=== PATIENT | female | born 1955 | race Caucasian/White ===

== ENCOUNTER 2020-06-20 10:59 | Outpatient (REF) | payer OTHER, SELFPAY ==
--- NOTE | 2020-06-20 11:04 | MM_ITS ---
EXAMINATION: MM SCREENING DIGITAL BREAST TOMOSYNTHESIS, BILATERAL CLINICAL INFORMATION: Screening. Asymptomatic. Personal history of breast cancer, status post left conservation therapy in September 2013. The lifetime risk of breast cancer based on the Tyrer-Cuzick Model: Not applicable given the personal history of breast cancer. COMPARISON: Mammography: 01/20/2019 and multiple previous mammograms dated back to 08/28/2013 TECHNIQUE: Digital breast tomosynthesis is performed in both the craniocaudal and mediolateral oblique views along with computer-aided detection (CAD). Synthesized 2D images are generated from the tomosynthesis. FINDINGS: The breasts are almost entirely fatty (ACR BI-RADS breast composition Category a). Right breast: No suspicious masses, calcifications, architectural distortion or other abnormalities are seen. Compared to the last study, no significant interval change is noted. Left breast: Postsurgical changes of lumpectomy at 12 o'clock in the anterior third with focal architectural distortion, overlying surgical skin scar and skin retraction are again noted without significant interval change compared to previous studies. Grouped coarse and heterogeneous calcifications are noted in the surgical bed, 6 cm from nipple; at least 3 of the calcifications have been stable since the previous mammograms of 12/11/2017. 2-3 calcifications appear new compared to last study of 2019. This probably represent developing calcifications of likely necrosis however further evaluation is recommended at this time. No suspicious masses or other abnormalities are seen. MM/MM tomosynthesis screening BI IMPRESSION: 1. No mammographic evidence of malignancy in the right breast. 2. Slight interval increase in the number of calcifications in the surgical bed in the left breast at 12 o'clock. ASSESSMENT: BI-RADS 0: Incomplete - Need Additional Imaging Evaluation RECOMMENDATION: Left full-field mediolateral view, left spot magnification craniocaudal view and left spot magnification mediolateral views are recommended. Radiology department staff will contact the patient for additional imaging.
== END 2020-06-20 11:00 | disposition home or self-care (01) ==
LOC: HO.MAMMO 10:59
PROVIDERS: PCP Internal Medicine; Visit Provider Internal Medicine
DX: Z12.31 Encounter for screening mammogram for malignant neoplasm of breast (principal)
CPT/HCPCS: 77063; 77067

== ENCOUNTER 2020-06-28 12:32 | Outpatient (REF) | payer OTHER, SELFPAY ==
--- NOTE | 2020-06-28 12:38 | MM_ITS ---
EXAMINATION: MM DIAGNOSTIC DIGITAL MAMMOGRAPHY, LEFT CLINICAL INFORMATION: Recall from screening for calcifications in region of lumpectomy. COMPARISON: Mammography: 06/20/2020, 01/20/2019, 12/11/2017 TECHNIQUE: Digital mammography is performed in the following views: Magnification CC, magnification ML FINDINGS: There are scattered areas of fibroglandular density (ACR BI-RADS breast composition Category b). The additional magnification views show tightly grouped coarse benign-appearing calcifications in the region of the lumpectomy. One of the calcifications have lucent center and they are circumferentially arranged on the CC view. Results are discussed with the patient at time of visit. MM/MM added views LT IMPRESSION: Benign-appearing calcifications in the lumpectomy bed, likely dystrophic and/or fat necrosis. ASSESSMENT: BI-RADS 3: Probably Benign RECOMMENDATION: Diagnostic left mammography in 6 months. This patient's information was entered into a reminder system with a target due date for their next mammogram.
== END 2020-06-28 12:33 | disposition home or self-care (01) ==
LOC: HO.MAMMO 12:32
PROVIDERS: PCP Internal Medicine; Visit Provider Internal Medicine
DX: R92.1 Mammographic calcification found on diagnostic imaging of breast (principal)
CPT/HCPCS: 77065

== ENCOUNTER 2020-10-06 06:39 | Outpatient (REF) | payer OTHER, SELFPAY ==
[2020-10-06 11:03] LABS: MANUAL DIFF FLAG NO
[2020-10-06 11:07] LABS: Basophils Absolute Auto 0.1 X10*3/uL (0.0-0.2); Basophils Percent Auto 0.9 % (0-2); Eosinophils Absolute Auto 0.3 X10*3/uL (0.0-0.4); Eosinophils Percent Auto 4.8 % (0-4); Hematocrit 46.9 % (37-47); Hemoglobin 15.5 g/dl (12.0-16.0); Imm Gran Abs Auto 0.02 X10*3/uL (0.00-0.03); Imm Gran Pct Auto 0.3 % (0.0-0.4); Lymphocytes Absolute Auto 1.4 X10*3/uL (1.2-4.9); Lymphocytes Percent Auto 20.9 % (20-40); Mean Corpuscular Hemoglobin 30.9 pg (27.0-33.0); Mean Corpuscular Volume 93.6 fL (80-98); Mean Platelet Volume 10.4 fL (9.4-12.3); Monocytes Absolute Auto 0.6 X10*3/uL (0.1-1.2); Monocytes Percent Auto 9.6 % (2-11); Neutrophils Absolute Auto 4.1 X10*3/uL (2.0-8.3); Neutrophils Percent Auto 63.5 % (45-73); Platelet Count 230 X10*3/uL (160-400); Red Blood Count 5.01 X10*6/uL (4.20-5.50); Red Cell Distribution Width 12.8 % (11.0-16.0); White Blood Count 6.5 X10*3/uL (4.8-10.8)
[2020-10-06 11:48] LABS: Alanine Aminotransferase 16 U/L (0-31); Albumin Level 4.3 g/dL (3.5-5.0); Alkaline Phosphatase 55 U/L (39-117); Anion Gap 15 (12-20); Aspartate Amino Transferase 14 U/L (5-31); Bilirubin Total 0.7 mg/dL (0.0-1.0); Blood Urea Nitrogen 15 mg/dL (9-16); Calcium 8.5 mg/dL (8.4-10.2); Carbon Dioxide 25 mmol/L (22-29); Chloride 106 mmol/L (96-108); Cholesterol 201 mg/dL; Estimated Glomerular Filt Rate > 60; Glucose Fasting 94 mg/dL (60-99); HDL Cholesterol 47 mg/dL; LDL Cholesterol Calculated 126 mg/dl; Potassium 4.2 mmol/L (3.3-5.1); Sodium 142 mmol/L (135-145); Total Protein 7.1 g/dL (6.5-8.0); Triglycerides 144 mg/dL
[2020-10-06 11:50] LABS: TSH reflex Free T4 2.21 uIU/mL (0.32-4.0); Vitamin D 25-OH Total 23.1 ng/mL (>30)
== END 2020-10-06 06:40 | disposition home or self-care (01) ==
LOC: HO.HMGCLDS 06:39
PROVIDERS: PCP Internal Medicine; Visit Provider Internal Medicine
DX: D05.12 Intraductal carcinoma in situ of left breast (principal); E66.01 Morbid (severe) obesity due to excess calories; M17.0 Bilateral primary osteoarthritis of knee; Z78.0 Asymptomatic menopausal state
CPT/HCPCS: 36415; 80053; 80061; 82306; 84443; 85025

== ENCOUNTER 2020-10-14 15:54 | Outpatient (REF) | payer OTHER, SELFPAY ==
[2020-10-22 06:12] LABS: HPV mRNA E6/E7 rflx Not Detected (Not Detected)
== END 2020-10-14 15:55 | disposition home or self-care (01) ==
LOC: HO.LNP 15:54
PROVIDERS: Visit Provider Internal Medicine
DX: Z12.4 Encounter for screening for malignant neoplasm of cervix (principal); Z11.51 Encounter for screening for human papillomavirus (HPV)
CPT/HCPCS: 87624; 88142

== ENCOUNTER 2020-10-15 11:20 | Outpatient (REF) | payer OTHER, SELFPAY | END 2020-10-15 11:21 | disposition home or self-care (01) | LOC: HO.LNP 11:20 | PROVIDERS: Visit Provider Internal Medicine | DX: Z13.89 Encounter for screening for other disorder (principal) ==

== ENCOUNTER 2021-01-23 13:26 | Outpatient (REF) | payer MEDICARE, SELFPAY ==
--- NOTE | ~2021-01-23 | MM_ITS ---
EXAMINATION: MM DIAGNOSTIC DIGITAL BREAST TOMOSYNTHESIS, LEFT CLINICAL INFORMATION: Probable benign calcifications in area of lumpectomy scar left breast. 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 COMPARISON: Mammography: 06/28/2020, 06/20/2020 (BI-RADS 0), 01/20/2019, 12/11/2017 TECHNIQUE: Digital breast tomosynthesis is performed in both the craniocaudal and mediolateral oblique views along with computer-aided detection (CAD). Synthesized 2D images are generated from the tomosynthesis. Additional magnification left CC and magnification left ML views are obtained. FINDINGS: There are scattered areas of fibroglandular density (ACR BI-RADS breast composition Category b). There are post therapy changes with minor scarring anterior medial left breast. There is no developing density or interval mass or abnormal calcifications. The calcifications for follow-up are benign and coarser since prior diagnostic exam. They will be reassessed again at time of annual mammography, due in 6 months. Results are discussed with the patient at time of visit. MM/MM tomosynthesis diagnostic LT IMPRESSION: Postsurgical changes consistent with prior lumpectomy. Calcifications at lumpectomy site are coarser and appear benign. ASSESSMENT: BI-RADS 3: Probably Benign RECOMMENDATION: Diagnostic mammography at time of annual exam, due in 6 months. This patient's information was entered into a reminder system with a target due date for their next mammogram.
== END 2021-01-23 13:27 | disposition home or self-care (01) ==
LOC: HO.MAMMO 13:26
PROVIDERS: Visit Provider Internal Medicine
DX: R92.1 Mammographic calcification found on diagnostic imaging of breast (principal)
CPT/HCPCS: 77061; 77065

== ENCOUNTER 2021-03-21 08:14 | Outpatient (REF) | payer MEDICARE, SELFPAY ==
--- NOTE | ~2021-03-21 | MM_ITS ---
EXAMINATION: BONE DENSITOMETRY CLINICAL INDICATION: Asymptomatic menopausal state. COMPARISON: Baseline BD dated 11/19/2013. TECHNIQUE: Using a [employer] [place] DXA System (software version: 13.1) manufactured by [employer], dual-energy x-ray absorptiometry was performed of the lumbar spine and left hip. The images are of good technical quality. Summary results are attached. FINDINGS: AP SPINE L1-L4: Current: BMD 1.119 g/cm2, Z-score -0.1, T-score -0.5, normal, 4.3% decrease from baseline (<5% change is not significant). Baseline: BMD 1.169 g/cm2. LEFT FEMUR, NECK: Current: BMD 0.937 g/cm2, Z-score 0.0, T-score -0.7, normal. Baseline: BMD 0.944 g/cm2. LEFT FEMUR, TOTAL: Current: BMD 1.023 g/cm2, Z-score 0.5, T-score 0.1, normal, 4.8% decrease from baseline (<5% change is not significant). Baseline: BMD 1.075 g/cm2. IDENTIFIED RISK FACTORS: Menopause. HISTORY OF FRACTURE: None listed. MEDICATIONS: Vitamin D. MM/XR DEXA axial skeleton IMPRESSION: 1. DIAGNOSIS: Normal bone density based on the lowest T-score value of -0.7 in the femoral neck applying World Health Organization criteria. 2. 10-YEAR FRACTURE RISK PREDICTION, FRAX: Major osteoporotic fracture (clinical spine, forearm, hip or shoulder) 5.9%. Hip fracture 0.3%. 3. Treatment Recommendations: NOF guidelines recommend consideration for treatment in postmenopausal women and men age 50 and older presenting with the following: -A hip or vertebral (clinical or morphometric) fracture. -T-score less than or equal to -2.5 at the femoral neck or spine after appropriate evaluation to exclude secondary causes. -Low bone mass at the hip or spine and a 10-year fracture probability by FRAX of greater than or equal to 3% for hip fracture or greater than or equal to 20% for major osteoporotic fracture based on the [place] adapted WHO algorithm. 4. Other Recommendations: All treatment decisions require clinical judgment and consideration of individual patient factors, including patient preferences, comorbidities, previous drug use, risk factors not captured in the FRAX model (e.g. frailty, falls, vitamin D deficiency, increased bone turnover, interval significant decline in bone density) and possible under or overestimation of fracture risk by FRAX. FUTURE SCAN RECOMMENDATION: People with diagnosed cases of osteoporosis or at high risk for fracture should have regular bone mineral density tests. For patients eligible for Medicare, routine testing is allowed once every 2 years. The testing frequency can be increased to one year for patients who have rapidly progressing disease, those who are receiving or discontinuing medical therapy to restore bone mass, or have additional risk factors.
== END 2021-03-21 08:15 | disposition home or self-care (01) ==
LOC: HO.MAMMO 08:14
PROVIDERS: Visit Provider Internal Medicine
DX: Z13.820 Encounter for screening for osteoporosis (principal); Z78.0 Asymptomatic menopausal state; Z79.899 Other long term (current) drug therapy
CPT/HCPCS: 77080

== ENCOUNTER 2021-09-01 09:02 | Outpatient (REF) | payer MEDICARE, SELFPAY ==
--- NOTE | ~2021-09-01 | MM_ITS ---
EXAMINATION: MM DIAGNOSTIC DIGITAL BREAST TOMOSYNTHESIS, BILATERAL CLINICAL INFORMATION: Six-month follow-up bilateral study with follow-up calcifications on the left. Status post left lumpectomy. COMPARISON: Mammography: 01/23/2021 and studies dating back to 08/28/2013. TECHNIQUE: Digital breast tomosynthesis is performed in both the craniocaudal and mediolateral oblique views along with computer-aided detection (CAD). Synthesized 2D images are generated from the tomosynthesis. Spot magnification views in craniocaudal and 90 degree mediolateral views also performed. FINDINGS: There are scattered areas of fibroglandular density (ACR BI-RADS breast composition Category b). There is a stable parenchymal pattern of the right breast with no new suspicious grouping of microcalcifications or abnormal dominant masses. Postsurgical change is again seen within the left breast. The questioned calcifications about the upper outer aspect of the left breast are seen to be coalescing with the appearance of dystrophic calcifications from surgery. Anterior to these calcifications there are some of the developing calcifications which likely are dystrophic as well. Recommend 1 year follow-up study with magnification views at time of the bilateral mammogram. Results are provided to the patient at time of visit by the technologist. MM/MM tomosynthesis diagnostic BI IMPRESSION: Probably developing dystrophic calcifications within the left breast. ASSESSMENT: BI-RADS 3: Probably Benign. RECOMMENDATION: Diagnostic mammography at time of next annual exam, due in 12 months. This patient's information was entered into a reminder system with a target due date for their next mammogram.
== END 2021-09-01 09:03 | disposition home or self-care (01) ==
LOC: HO.MAMMO 09:02
PROVIDERS: Visit Provider Internal Medicine
DX: R92.1 Mammographic calcification found on diagnostic imaging of breast (principal)
CPT/HCPCS: 77062; 77066

== ENCOUNTER 2021-10-23 07:38 | Outpatient (REF) | payer MEDICARE, SELFPAY ==
[2021-10-23 11:56] LABS: Alanine Aminotransferase 14 U/L (0-31); Anion Gap 11 (12-20); Aspartate Amino Transferase 13 U/L (5-31); Blood Urea Nitrogen 24 mg/dL (9-16); Calcium 9.3 mg/dL (8.4-10.2); Carbon Dioxide 27 mmol/L (22-29); Chloride 107 mmol/L (96-108); Cholesterol 175 mg/dL; Estimated Glomerular Filt Rate 59; Glucose Fasting 99 mg/dL (60-99); HDL Cholesterol 42 mg/dL; LDL Cholesterol Calculated 113 mg/dl; Potassium 4.9 mmol/L (3.3-5.1); Sodium 140 mmol/L (135-145); Triglycerides 103 mg/dL
[2021-10-23 12:16] LABS: Vitamin D 25-OH Total 35.1 ng/mL (>30)
== END 2021-10-23 07:39 | disposition home or self-care (01) ==
LOC: HO.HMGCLDS 07:38
PROVIDERS: Visit Provider Internal Medicine
DX: Z00.01 Encounter for general adult medical examination with abnormal findings (principal); E55.9 Vitamin D deficiency, unspecified; E66.01 Morbid (severe) obesity due to excess calories; M17.0 Bilateral primary osteoarthritis of knee; D05.12 Intraductal carcinoma in situ of left breast; Z78.0 Asymptomatic menopausal state
CPT/HCPCS: 36415; 80048; 80061; 82306; 84450; 84460

== ENCOUNTER 2022-09-03 08:45 | Outpatient (REF) | payer MEDICARE, SELFPAY ==
--- NOTE | ~2022-09-03 | MM_ITS ---
EXAMINATION: MM DIAGNOSTIC DIGITAL BREAST TOMOSYNTHESIS, BILATERAL CLINICAL INFORMATION: Due for yearly. Also follow-up probable benign calcifications in area of lumpectomy scar left breast, prior surgery 2014 for high-grade DCIS (primary lesion a nodule). COMPARISON: Mammography: 09/01/2021, 01/23/2021, 06/28/2020, 06/20/2020 (BI-RADS 0), 01/20/2019 TECHNIQUE: Digital breast tomosynthesis is performed in both the craniocaudal and mediolateral oblique views along with computer-aided detection (CAD). Synthesized 2D images are generated from the tomosynthesis. Additional magnification views of the left breast are obtained in the CC and ML x3 projections. FINDINGS: There are scattered areas of fibroglandular density (ACR BI-RADS breast composition Category b). Parenchymal pattern is similar to prior exams and there is no developing density or interval mass or architectural abnormality or abnormal calcifications. The axilla are unremarkable. Post therapy changes on the left are similar to prior exams. There are benign coarse dystrophic calcifications at the lumpectomy site with no interval suspicious changes from prior diagnostic studies. The calcifications are now considered to be benign. Results are discussed with the patient at time of visit. MM/MM tomosynthesis diagnostic BI IMPRESSION: -No mammographic evidence of malignancy. -Post therapy changes left breast. Benign calcifications at lumpectomy scar. ASSESSMENT: BI-RADS 2: Benign RECOMMENDATION: Routine annual mammography screening. This patient's information was entered into a reminder system with a target due date for their next mammogram.
== END 2022-09-03 08:46 | disposition home or self-care (01) ==
LOC: HO.MAMMO 08:45
PROVIDERS: PCP Internal Medicine; Visit Provider Internal Medicine
DX: R92.1 Mammographic calcification found on diagnostic imaging of breast (principal)
CPT/HCPCS: 77062; 77066

== ENCOUNTER 2023-10-07 10:28 | Outpatient (REF) | payer MEDICARE, SELFPAY ==
--- NOTE | ~2023-10-07 | MM_ITS ---
EXAMINATION: MM SCREENING DIGITAL BREAST TOMOSYNTHESIS, BILATERAL CLINICAL INFORMATION: Screening. Asymptomatic. The patient has a history of conservatively treated left breast cancer diagnosed in 2014 COMPARISON: Mammography: This study is compared with prior exams dating back to 2018. TECHNIQUE: Digital breast tomosynthesis is performed in both the craniocaudal and mediolateral oblique views along with computer-aided detection (CAD). Synthesized 2D images are generated from the tomosynthesis. FINDINGS: There are scattered areas of fibroglandular density (ACR BI-RADS breast composition Category b). There are no significant masses, abnormal calcifications, or other abnormalities. There are architectural changes retroareolar region of the left breast from prior cancer surgery. Few, benign dystrophic calcifications are present in this region. MM/MM tomosynthesis screening BI IMPRESSION: No mammographic evidence of malignancy. ASSESSMENT: BI-RADS BI-RADS 2 - Benign Findings RECOMMENDATION: Routine annual mammography screening. 1 year F/U This examination should not preclude the clinical evaluation of a suspicious palpable abnormality. This patient's information was entered into a reminder system with a target due date for their next mammogram.
== END 2023-10-07 10:29 | disposition home or self-care (01) ==
LOC: HO.MAMMO 10:28
PROVIDERS: PCP Internal Medicine; Visit Provider Internal Medicine
DX: Z12.31 Encounter for screening mammogram for malignant neoplasm of breast (principal)
CPT/HCPCS: 77063; 77067

== ENCOUNTER → 2023-10-07 10:30 | Outpatient (BNV) | payer MEDICARE, SELFPAY | PROVIDERS: PCP Internal Medicine; Visit Provider Radiology Diagnostic Radiology | DX: Z12.31 Encounter for screening mammogram for malignant neoplasm of breast (principal) | CPT/HCPCS: 77063; 77067 ==

== ENCOUNTER 2023-12-17 08:01 | Outpatient (AMB) | payer MEDICARE, SELFPAY ==
--- NOTE | 2023-12-17 08:05 | A.OFFPC_ITS ---
Vital Signs 12/17/23 08:07 Height 5 ft 4 in Weight 294 lb BMI 50.5 BP 136/80 Blood Pressure Location Rt radial Position Sitting Pulse 80 Pulse Source Pulse Oximeter Pulse Oximetry (%) 97 Oxygen Delivery Method Room Air Intake Visit Reasons: Lt eye cataract Dr. Davis on 12/18 Intake Note: Pt is here today for her pre-op Lt eye cataract Dr. Davis Allergies No Known Allergies Allergy (Verified 12/17/23 08:20) Medication List - Last Reconciled 12/17/23 by Vidhi Urrutia MD acetaminophen ER (Tylenol 8 Hour) 650 mg PO Q12H naproxen 500 mg PO BID Tobacco use date assessed: 12/17/23 Fall risk assessment: 1 Fall in past year Last assessed Fall Risk: 12/17/23 Dental Screening Dental Screen Date: 12/17/23 Did you have a dental visit in the last 12 months?: Yes Did you have a dental problem in the last 6 months where you did not have access to dental care?: No Was dental information given to patient?: Patient has dentist HPI Lt eye cataract Dr. Davis on 12/18 HPI Details 68 year old Lady here today for preopera tive exam for cataract surgery on her left eye, scheduled for 12/19/2023, requested by Dr. Davis. She has history of ductal carcinoma in Situ of left breast , status post partial mastectomy in 2013; has history osteoarthritis s/p bilateral knee replacement; has been feeling well with no new complaints at present time except for pain and stiffness in her right hip joint. 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, bilateral Surgical History History of partial mastectomy History of knee replacement Family History Mother Breast cancer Father Coronary artery disease Hypertension Sister Muscular dystrophy Breast cancer Ovarian cancer Thyroid cancer Social History Housing: House Alcohol intake: current Alcohol intake frequency: holidays/special occasions only Patient Tobacco Use Status: Never used Tobacco e-Cigarette/Vaping Use: Never Used service: No Current occupational status: retired Cognitive needs: No Hearing needs: No Vision needs: No Questionnaire PHQ-9 Over the last 2 weeks, how often have you been bothered by any of the following problems? 1. Little interest or pleasure in doing things: not at all 2. Feeling down, depressed, or hopeless: not at all 3. Trouble falling or staying asleep, or sleeping too much: not at all 4. Feeling tired or having little energy: not at all 5. Poor appetite or overeating: not at all 6. Feeling bad about yourself - or that you are a failure or have let yourself or your family down: not at all 7. Trouble concentrating on things, such as reading the newspaper or watching television: not at all 8. Moving or speaking so slowly that other people could have noticed. Or the opposite - being so fidgety or restless that you have been moving around a lot more than usual: not at all 9. Thoughts that you would be better off or of hurting yourself in some way: not at all Total score: 0 Depression Screening Interpretation: Negative Depression Screening Done: Yes 30873 - PHQ-9 Billing: Yes Source: Developed by Drs. Mazin Choudhury, Marina Ríos, Tanner Grimm and colleagues, with an educational tracie from [employer]. Thrive Questionnaire Date Thrive assessed: 12/17/23 I am a: Patient What is your living situation today?: I have a steady place to live Within the past 12 months, did the food you bought not last and you didn't have the money to get more?: Never true Within the past 12 months, did you worry whether your food would run out before you got money to buy more?: Never true Do you have trouble paying for medicines?: No Do you have trouble getting transportation to medical appointments?: No Do you have trouble paying your heating and electricity bill?: No Do you have trouble taking care of your child, family member or friend?: No Do you have trouble with day-to-day activities such as bathing, preparing meals, shopping, managing finances, etc.?: No Are you currently unemployed and looking for a job?: No Are you interested in more education?: No THRIVE Score: 0 AUDIT C Alcohol Use Questionnaire (AUDIT-C) 1. How often do you have a drink containing alcohol?: Never Total Score: 0 HENRIQUE-7 AMB Questionnaire HENRIQUE-7 Date HENRIQUE - 7 assessed: 12/17/23 Feeling nervous, anxious, or on edge: 0 = Not at all Not being able to stop or control worryin = Not at all Worrying too much about different things: 0 = Not at all Trouble relaxin = Not at all Being so restless that it is hard to sit still: 0 = Not at all Becoming easily annoyed or irritable: 0 = Not at all Feeling afraid as if something awful might happen: 0 = Not at all Total HENRIQUE-7 score (0-4 normal; 5-9 mild; 10-14 moderate; 15-21 severe): 0 Source: Developed by Drs. Mazin Choudhury, Marina Ríos, Tanner Grimm and colleagues, with an educational tracie from [employer]. HENRIQUE-7 Assessment Billing HENRIQUE-7 Assessment Tool: HENRIQUE-7 Assessment 95845 Review of Systems Const Denies body aches, Denies fatigue, Denies fever(s), Denies frequent falls, Denies headache(s) and Denies weakness Eyes Reports blurry vision, Denies eye discharge and Denies itchy eyes ENT Denies dizziness, Denies headache(s), Denies nasal congestion, Denies nasal discharge and Denies sore throat Card Denies chest pain, Denies lightheadedness, Denies palpitations and Denies dyspnea Resp Denies chest congestion, Denies cough, Denies dyspnea and Denies wheezing GI Denies abdominal pain, Denies change in bowel habits and Denies heartburn Denies urinary frequency, Denies dysuria and Denies urinary urgency Musc Denies back pain, Denies joint swelling, Denies muscle weakness and Reports stiffness Skin/Breast Denies lesions and Denies rash Neuro Denies dizziness, Denies frequent falls, Denies headache(s) and Denies weakness Psych Denies anxiety and Denies depression Endo Denies fatigue, Denies polydipsia, Denies polyuria and Denies palpitations Rocael/Lymph Denies easy bruising Aller/Immun Denies itchy eyes, Denies seasonal rhinorrhea and Denies wheezing Physical exam (Primary Care) Vital Signs: Last Vital Signs Pulse 80 12/17/23 08:07 BP 136/80 12/17/23 08:07 Pulse Ox 97 12/17/23 08:07 Oxygen Delivery Method Room Air 12/17/23 08:07 BMI result Body Mass Index 50.5 BMI Assessment/Plan discussion: High BMI High, discussed plan: lifestyle, weight reduction, dietary and physical activity Tobacco/Smoking Status: Tobacco use Status Tobacco use date assessed 12/17/23 12/17/23 08:13 Patient Tobacco Use Status Never used Tobacco 12/17/23 08:07 e-Cigarette/Vaping Use Never Used 12/17/23 08:07 PHQ-9: PHQ-9 Score PHQ-9: Total score 0 12/17/23 09:06 Depression Screening Interpretation: Negative Thrive Assessment: Date of Thrive Assessment Date Thrive assessed 12/17/23 12/17/23 08:13 Advance Care Planning discussion: Completed/Scanned Date of discussion: 12/17/23 Who was present: Patient Forms completed: Health Care Proxy and MOLST Time spent: 16-45 minutes Actual minutes spent: 16 Const General: comfortable, no acute distress and Physically active Nutritional Appearance: obese morbidly obese Orientation/consciousness: patient oriented x3 Limitations: ambulation with cane HENMT Head: Yes normocephalic Ears: TM's normal bilaterally and EAC's normal General nose exam: Normal external nose present Face and sinus: Yes face symmetric Mouth: Normal oral and palatal mucosa present and moist mucous membranes Eyes General: appearance normal, both eyes and all related structures Neck Neck: Yes full ROM, Yes no lymphadenopathy and Yes supple Thyroid: Thyroid normal (Nonpalpable) Chest Chest palpation & inspection: normal inspection of the chest Breast/axilla inspection: normal inspection of the breasts Breast/axilla palpation: normal palpation of the breasts Resp Effort & Inspection: normal respiratory effort and able to speak in complete sentences Auscultation: clear to auscultation bilaterally Cardio Rate: regular rate Rhythm: regular rhythm Heart sounds: S1 normal heart sound present and S2 normal heart sound present GI Inspection: Yes obesity Palpation (GI): Soft to palpation, nontender, no guarding and no masses Auscultation: normal bowel sounds General: Yes no CVA tenderness and Yes deferred Back/Spine/Pelvis Back: no CVA tenderness and No back tenderness Neuro General: patient oriented x3 Extrem Other: Decreased range of motion of right hip joint General: Yes no joint enlargement, Yes no pedal edema and Yes no calf tenderness Psych Appearance: grossly normal Mental Status: mental status grossly normal Speech and movement: Normal speech and movement present Affect: normal affect Attitude: cooperative Thought process: Normal thought process present Thought content: Normal thought content present Assessment and Plan Assessment & Plan (1) Preoperative examination: Code(s): Z01.818 - Encounter for other preprocedural examination Plan: 68-year-old lady here today for preoperative exam for cataract surgery on her left eye scheduled for 12/19/2023, requested by Dr. Davis. Preoperative exam is unremarkable, patient denies any chest pain, no lightheadedness, shortness of breath or abnormal bleeding. Patient with low cardiac risk index for proposed surgery . Advised to hold off on taking naproxen, starting today (2) Morbid obesity: Code(s): E66.01 - Morbid (severe) obesity due to excess calories Plan: Reinforced importance of following low-cholesterol diet, do regular exercise, determined to lose weight as she needs to have a right hip replacement (3) Osteoarthritis of right hip: Code(s): M16.11 - Unilateral primary osteoarthritis, right hip Plan: Currently followed by Orthopedics, to be scheduled for a right total hip replacement in the future Coding Level of Care Code Est Pt Level 4 (04632) Diagnoses Preoperative examination Z01.818 Morbid obesity E66.01 Osteoarthritis of right hip M16.11 Additional Codes HENRIQUE-7 Assessment Billing - HENRIQUE-7 Assessment Tool: HENRIQUE-7 Assessment 59514 ([id number]) Vital Signs *Quality* - Advance Care Planning discussion: Completed/Scanned ([id number]) Vital Signs *Quality* - Time spent: 16-45 minutes ([id number])
[2023-12-17 08:07] VITALS: BP 136/80; PULSE 80; O2SAT 97; BMI 50.5
== END 2023-12-17 08:56 | disposition home or self-care (01) ==
PROVIDERS: PCP Internal Medicine; Visit Provider Internal Medicine
DX: M16.11 Unilateral primary osteoarthritis, right hip (principal); E66.01 Morbid (severe) obesity due to excess calories; Z68.43 Body mass index [BMI] 50.0-59.9, adult; Z01.818 Encounter for other preprocedural examination; Z00.00 Encounter for general adult medical examination without abnormal findings
CPT/HCPCS: 1123F; 99214; 99497

== ENCOUNTER 2023-12-31 09:30 | Outpatient (AMB) | payer MEDICARE, SELFPAY ==
--- NOTE | 2023-12-31 09:46 | A.OFFPC_ITS ---
Vital Signs 12/31/23 09:51 Height 5 ft 4 in Weight 292 lb BMI 50.1 BP 138/72 Blood Pressure Location Rt brachial Position Sitting Pulse 79 Pulse Source Pulse Oximeter Pulse Oximetry (%) 99 Oxygen Delivery Method Room Air Intake Visit Reasons: Annual PE Intake Note: Pt is here today for her PE: last mammogram 10/07/23, bone density scan 03/21/21, cologuard 08/24/23 negative Allergies No Known Allergies Allergy (Verified 12/31/23 10:18) Medication List - Last Reconciled 12/31/23 by Vidhi Urrutia MD acetaminophen ER (Tylenol 8 Hour) 650 mg PO Q12H naproxen 500 mg PO BID Tobacco use date assessed: 12/31/23 Fall risk assessment: 1 Fall in past year Last assessed Fall Risk: 12/31/23 Dental Screening Dental Screen Date: 12/31/23 Did you have a dental visit in the last 12 months?: Yes Did you have a dental problem in the last 6 months where you did not have access to dental care?: No Was dental information given to patient?: Patient has dentist HPI Annual PE HPI Details 68-year-old lady here today for her phys ical exam. 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 She had a bone density scan 03/21/21 which showed normal bone density in lumbar spine, left femur and left femoral neck, and had a negative Cologuard done 08/24/23 . 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, bilateral Surgical History History of partial mastectomy History of knee replacement Family History Mother Breast cancer Father Coronary artery disease Hypertension Sister Muscular dystrophy Breast cancer Ovarian cancer Thyroid cancer Social History Housing: House Alcohol intake: current Alcohol intake frequency: holidays/special occasions only Patient Tobacco Use Status: Never used Tobacco e-Cigarette/Vaping Use: Never Used service: No Current occupational status: retired Cognitive needs: No Hearing needs: No Vision needs: No Questionnaire PHQ-9 Over the last 2 weeks, how often have you been bothered by any of the following problems? Depression Screening Interpretation: Negative Depression Screening Done: Yes Source: Developed by Drs. Mazin Choudhury, Marina Ríos, Tanner Grimm and colleagues, with an educational tracie from [employer]. Thrive Questionnaire Date Thrive assessed: 12/17/23 HENRIQUE-7 AMB Questionnaire HENRIQUE-7 Date HENRIQUE - 7 assessed: 12/17/23 Source: Developed by Drs. Mazin Choudhury, Marina Ríos, Tanner Grimm and colleagues, with an educational tracie from [employer]. Review of Systems Const Denies body aches, Denies fatigue, Denies fever(s), Denies frequent falls, Denies headache(s) and Denies weakness Eyes Details: Had cataract [facility] Denies dizziness, Denies headache(s), Denies nasal congestion, Denies nasal dis charge and Denies sore throat Card Denies chest pain, Denies lightheadedness, Denies palpitations and Denies dyspnea Resp Denies chest congestion, Denies cough, Denies dyspnea and Denies wheezing GI Reports bloating, Reports change in bowel habits and Denies heartburn Denies urinary frequency, Denies dysuria and Denies urinary urgency Musc Denies back pain, Denies joint swelling, Denies muscle weakness and Reports stiffness Skin/Breast Denies lesions and Denies rash Neuro Denies dizziness, Denies frequent falls, Denies headache(s) and Denies weakness Psych Denies anxiety and Denies depression Endo Denies fatigue, Denies polydipsia, Denies polyuria and Denies palpitations Rocael/Lymph Denies easy bruising Aller/Immun Denies seasonal rhinorrhea and Denies wheezing Physical exam (Primary Care) Vital Signs: Last Vital Signs Pulse 79 12/31/23 09:51 BP 138/72 12/31/23 09:51 Pulse Ox 99 12/31/23 09:51 Oxygen Delivery Method Room Air 12/31/23 09:51 BMI result Body Mass Index 50.1 BMI Assessment/Plan discussion: High BMI High, discussed plan: lifestyle, weight reduction, dietary and physical activity Tobacco/Smoking Status: Tobacco use Status Tobacco use date assessed 12/31/23 12/31/23 09:56 Patient Tobacco Use Status Never used Tobacco 12/31/23 09:48 e-Cigarette/Vaping Use Never Used 12/31/23 09:48 Depression Screening Interpretation: Negative Thrive Assessment: Date of Thrive Assessment Date Thrive assessed 12/17/23 12/31/23 09:48 Const General: comfortable and no acute distress Nutritional Appearance: obese morbidly obese Orientation/consciousness: patient oriented x3 Limitations: ambulation with cane HENMT Head: Yes normocephalic Ears: TM's normal bilaterally and EAC's normal General nose exam: Normal external nose present Face and sinus: Yes face symmetric Mouth: Normal oral and palatal mucosa present and moist mucous membranes Eyes General: appearance normal, both eyes and all related structures Neck Neck: Yes full ROM, Yes no lymphadenopathy and Yes supple Thyroid: Thyroid normal (Nonpalpable) Chest Chest palpation & inspection: normal inspection of the chest Breast/axilla inspection: normal inspection of the breasts Breast/axilla palpation: normal palpation of the breasts Resp Effort & Inspection: normal respiratory effort and able to speak in complete sentences Auscultation: clear to auscultation bilaterally Cardio Rate: regular rate Rhythm: regular rhythm Heart sounds: S1 normal heart sound present and S2 normal heart sound present GI Inspection: Yes obesity Palpation (GI): Soft to palpation, nontender, no guarding and no masses Auscultation: normal bowel sounds General: Yes no CVA tenderness and Yes deferred Back/Spine/Pelvis Back: no CVA tenderness and No back tenderness Skin General skin exam: no rashes or lesions noted Neuro General: patient oriented x3 Extrem Other: Decreased range of motion of right hip joint General: Yes no joint enlargement, Yes no pedal edema and Yes no calf tenderness Psych Appearance: grossly normal Mental Status: mental status grossly normal Speech and movement: Normal speech and movement present Affect: normal affect Attitude: cooperative Thought process: Normal thought process present Thought content: Normal thought content present Assessment and Plan Assessment & Plan (1) Annual visit for general adult medical examination with abnormal findings: Code(s): Z00.01 - Encounter for general adult medical examination with abnormal findings Plan: Will check appropriate labs. Continue with regular dental visit every 6 months and regular eye exams, at least every 2 years. Take adequate calcium in diet and vitamin-D 3 at 2000 IU per cap once a day, in addition to weight-bearing exercises to help maintain good muscle tone and weight control. Instructed to do self-breast exam, and continue with yearly mammogram. Had a Cologuard test done recently which came back negative. Up-to-date with her COVID vaccine and gets yearly flu shot, has had 1 Shingrix vaccine on file, patient to check with her pharmacy if she was given a 2nd dose. Would also recommend checking with pharmacy whether she received already the Prevnar 13 and Pneumovax 23 for prevention of pneumonia . (2) Osteoarthritis of right hip: Code(s): M16.11 - Unilateral primary osteoarthritis, right hip Plan: Takes acetaminophen as needed for joint pain (3) Morbid obesity: Code(s): E66.01 - Morbid (severe) obesity due to excess calories (4) IBS (irritable bowel syndrome): Code(s): K58.9 - Irritable bowel syndrome without diarrhea Plan: Will try her on dicyclomine 20 mg per tablet, to take 1 tablet twice a day with meals, may increase to 3 times a day dosing before meals. Call if no improvement after 2 weeks of taking the medication Orders: Orders Complete Blood Count Auto Diff Today E66.01 - Morbid (severe) obesity due to excess calories, M16.11 - Unilateral primary osteoarthritis, right hip, Z00.01 - Encounter for general adult medical examination with abnormal findings, Z13.1 - Encounter for screening for diabetes mellitus, Z13.220 - Encounter for screening for lipoid disorders, Z78.0 - Asymptomatic menopausal state Basic Metabolic Panel Fasting Today E66.01 - Morbid (severe) obesity due to excess calories, M16.11 - Unilateral primary osteoarthritis, right hip, Z00.01 - Encounter for general adult medical examination with abnormal findings, Z13.1 - Encounter for screening for diabetes mellitus, Z13.220 - Encounter for screening for lipoid disorders, Z78.0 - Asymptomatic menopausal state Lipid Panel Today E66.01 - Morbid (severe) obesity due to excess calories, M16.11 - Unilateral primary osteoarthritis, right hip, Z00.01 - Encounter for general adult medical examination with abnormal findings, Z13.1 - Encounter for screening for diabetes mellitus, Z13.220 - Encounter for screening for lipoid disorders, Z78.0 - Asymptomatic menopausal state Alanine Aminotransferase Today E66.01 - Morbid (severe) obesity due to excess calories, M16.11 - Unilateral primary osteoarthritis, right hip, Z00.01 - Encounter for general adult medical examination with abnormal findings, Z13.1 - Encounter for screening for diabetes mellitus, Z13.220 - Encounter for screening for lipoid disorders, Z78.0 - Asymptomatic menopausal state Aspartate Amino Transferase Today E66.01 - Morbid (severe) obesity due to excess calories, M16.11 - Unilateral primary osteoarthritis, right hip, Z00.01 - Encounter for general adult medical examination with abnormal findings, Z13.1 - Encounter for screening for diabetes mellitus, Z13.220 - Encounter for screening for lipoid disorders, Z78.0 - Asymptomatic menopausal state Vitamin D 25-OH Total Today E66.01 - Morbid (severe) obesity due to excess calories, M16.11 - Unilateral primary osteoarthritis, right hip, Z00.01 - Encounter for general adult medical examination with abnormal findings, Z13.1 - Encounter for screening for diabetes mellitus, Z13.220 - Encounter for screening for lipoid disorders, Z78.0 - Asymptomatic menopausal state Medications: New dicyclomine 20 mg PO BID 60 tabs 1RF Coding Level of Care Code Est Pt Prev Care >65y(32217) Diagnoses Annual visit for general adult medical examination with abnormal findings Z00.01 Osteoarthritis of right hip M16.11 Morbid obesity E66.01 IBS (irritable bowel syndrome) K58.9
[2023-12-31 09:51] VITALS: BP 138/72; PULSE 79; O2SAT 99; BMI 50.1
== END 2023-12-31 11:11 | disposition home or self-care (01) ==
PROVIDERS: PCP Internal Medicine; Visit Provider Internal Medicine
DX: Z00.00 Encounter for general adult medical examination without abnormal findings (principal); M16.11 Unilateral primary osteoarthritis, right hip; E66.01 Morbid (severe) obesity due to excess calories; Z68.43 Body mass index [BMI] 50.0-59.9, adult; K58.9 Irritable bowel syndrome, unspecified
CPT/HCPCS: 99397

== ENCOUNTER 2024-11-27 09:14 | Outpatient (REF) | payer MEDICARE, SELFPAY ==
--- NOTE | ~2024-11-27 | MM_ITS ---
EXAMINATION: MM SCREENING DIGITAL BREAST TOMOSYNTHESIS, BILATERAL CLINICAL INFORMATION: Screening. Asymptomatic. History of left breast cancer status post lumpectomy. COMPARISON: Mammography: Comparison is made with available priors TECHNIQUE: Digital breast mammography with tomosynthesis is performed in both the craniocaudal and mediolateral oblique views along with computer-aided detection (CAD). FINDINGS: There are scattered areas of fibroglandular density (ACR BI-RADS breast composition Category b). Left breast post lumpectomy changes are stable. There are no significant masses, abnormal calcifications, or other abnormalities. MM/MM tomosynthesis screening BI IMPRESSION: No mammographic evidence of malignancy. ASSESSMENT: BI-RADS BI-RADS 2 - Benign Findings RECOMMENDATION: Routine annual mammography screening. 1 year F/U This examination should not preclude the clinical evaluation of a suspicious palpable abnormality. This patient's information was entered into a reminder system with a target due date for their next mammogram. Electronically signed by: Debbie Palmer DO 11/27/2024 12:55 PM EDT
== END 2024-11-27 09:15 | disposition home or self-care (01) ==
LOC: HO.MAMMO 09:14
PROVIDERS: PCP Internal Medicine; Visit Provider Internal Medicine
DX: Z12.31 Encounter for screening mammogram for malignant neoplasm of breast (principal)
CPT/HCPCS: 77063; 77067

== ENCOUNTER → 2024-11-27 09:30 | Outpatient (BNV) | payer MEDICARE, SELFPAY | PROVIDERS: PCP Internal Medicine; Visit Provider Internal Medicine | DX: Z12.31 Encounter for screening mammogram for malignant neoplasm of breast (principal) | CPT/HCPCS: 77063; 77067 ==

== ENCOUNTER 2024-12-29 08:15 | Outpatient (REF) | payer MEDICARE, SELFPAY ==
[2024-12-29 10:12] LABS: MANUAL DIFF FLAG NO
[2024-12-29 10:29] LABS: Basophils Absolute Auto 0.1 X10*3/uL (0.0-0.2); Basophils Percent Auto 1.1 % (0-2); Eosinophils Absolute Auto 0.3 X10*3/uL (0.0-0.4); Eosinophils Percent Auto 4.7 % (0-4); Hematocrit 44.9 % (37.0-47.0); Hemoglobin 14.6 g/dl (12.0-16.0); Imm Gran Abs Auto 0.02 X10*3/uL (0.00-0.03); Imm Gran Pct Auto 0.4 % (0.0-0.4); Lymphocytes Absolute Auto 1.3 X10*3/uL (1.2-4.9); Lymphocytes Percent Auto 24.5 % (20-40); Mean Corpuscular HGB Conc 32.5 g/dl (31.0-35.0); Mean Corpuscular Volume 92.4 fL (80.0-98.0); Mean Platelet Volume 10.2 fL (9.4-12.3); Monocytes Absolute Auto 0.5 X10*3/uL (0.1-1.2); Monocytes Percent Auto 9.1 % (2-11); Neutrophils Absolute Auto 3.2 x10*3/uL (2.0-8.3); Neutrophils Percent Auto 60.2 % (45-73); Platelet Count 245 X10*3/uL (160-400); Red Blood Count 4.86 X10*6/uL (4.20-5.50); Red Cell Distribution Width 13.7 % (11.0-16.0); White Blood Count 5.3 X10*3/uL (4.8-10.8)
[2024-12-29 10:47] LABS: Alanine Aminotransferase 11 U/L (0-31); Anion Gap 15 (12-20); Aspartate Amino Transferase 20 U/L (5-31); Blood Urea Nitrogen 21 mg/dL (9-16); Calcium 9.5 mg/dL (8.4-10.2); Carbon Dioxide 24 mmol/L (22-29); Chloride 107 mmol/L (96-108); Cholesterol 149 mg/dL (<200); Estimated Glomerular Filt Rate > 60; Glucose Fasting 96 mg/dL (60-99); HDL Cholesterol 49 mg/dL (>40); LDL Cholesterol Calculated 85 mg/dL (<100); Potassium 3.9 mmol/L (3.3-5.1); Sodium 142 mmol/L (135-145); Triglycerides 79 mg/dL (<150)
[2024-12-29 11:11] LABS: Vitamin D 25-OH Total 43.2 ng/mL (>30)
== END 2024-12-29 08:16 | disposition home or self-care (01) ==
LOC: HO.HMGCLDS 08:15
PROVIDERS: PCP Internal Medicine; Visit Provider Internal Medicine
DX: Z00.01 Encounter for general adult medical examination with abnormal findings (principal); M16.11 Unilateral primary osteoarthritis, right hip; E66.01 Morbid (severe) obesity due to excess calories; Z78.0 Asymptomatic menopausal state; Z13.220 Encounter for screening for lipoid disorders; Z13.1 Encounter for screening for diabetes mellitus
CPT/HCPCS: 36415; 80048; 80061; 82306; 84450; 84460; 85025

== ENCOUNTER 2024-12-31 08:23 | Outpatient (AMB) | payer MEDICARE, SELFPAY ==
--- NOTE | 2024-12-31 08:32 | A.OFFPC_ITS ---
Vital Signs 12/31/24 08:41 Height 5 ft 4 in Weight 289 lb BMI 49.6 BP 138/86 Blood Pressure Location Rt brachial Position Sitting Respiration 16 Pulse 78 Pulse Source Pulse Oximeter Temp 97.9 F Temp Source Oral Pulse Oximetry (%) 98 Oxygen Delivery Method Room Air Intake Visit Reasons: Annual PE Intake Note: Pt is here today for her PE: Last mammogram 11/27/24, bone density scan 03/21/21, cologuard 08/24/23 Allergies No Known Allergies Allergy (Verified 01/11/25 16:46) Medication List - Last Reconciled 01/11/25 by Vidhi Urrutia MD acetaminophen ER (Tylenol 8 Hour) 650 mg PO Q12H naproxen 500 mg PO BID phentermine 15 mg PO DAILY Tobacco use date assessed: 12/31/24 Fall risk assessment: No Falls in past year Last assessed Fall Risk: 12/31/24 Dental Screening Dental Screen Date: 12/31/24 Did you have a dental visit in the last 12 months?: Yes Did you have a dental problem in the last 6 months where you did not have access to dental care?: No Was dental information given to patient?: Patient has dentist HPI Annual PE HPI Details - 69-year-old female presenting for her physical exam. -she is up-to-date with her screening ma mmogram, done earlier this year with negative findings, last cervical cancer screening was done in 2020 which showed atrophic vaginal mucosa negative for HPV or intraepithelial lesion or malignancy, no longer gets screening for cervical cancer. -had a Cologuard done in 2023 with negat peter finding, due again for repeat Cologuard testing in 2026 -last bone density was done in 2020 whic h showed normal bone density. - She has struggled with weight manageme nt, having initially lost about 40 pounds through dietary changes but has since experienced fluctuations around 289-292 pounds for the last year. - Her obesity impacts potential hip repl acement surgery due to high BMI, with a need to reduce weight further. - Hip osteoarthritis leads to significan t physical limitations and pain, which she manages with naproxen and Tylenol. - Reports depression related to weight a nd physical limitations. - A six-week history of black discolorat ion of the toenail was noted on the left big toe with no injury history - Vaccine updates: COVID, flu, pneumonia , and RSV vaccines administered; second shingles vaccine pending due to missed dose. 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, bilateral Surgical History History of partial mastectomy History of knee replacement Family History Mother Breast cancer Father Coronary artery disease Hypertension Sister Muscular dystrophy Breast cancer Ovarian cancer Thyroid cancer Social History Housing: House Alcohol intake: current Alcohol intake frequency: holidays/special occasions only Patient Tobacco Use Status: Never used Tobacco e-Cigarette/Vaping Use: Never Used service: No Current occupational status: retired Cognitive needs: No Hearing needs: No Vision needs: No Questionnaire PHQ-9 Over the last 2 weeks, how often have you been bothered by any of the following problems? 1. Little interest or pleasure in doing things: not at all 2. Feeling down, depressed, or hopeless: not at all 3. Trouble falling or staying asleep, or sleeping too much: not at all 4. Feeling tired or having little energy: not at all 5. Poor appetite or overeating: not at all 6. Feeling bad about yourself - or that you are a failure or have let yourself or your family down: not at all 7. Trouble concentrating on things, such as reading the newspaper or watching television: not at all 8. Moving or speaking so slowly that other people could have noticed. Or the opposite - being so fidgety or restless that you have been moving around a lot more than usual: not at all 9. Thoughts that you would be better off or of hurting yourself in some way: not at all Total score: 0 Depression Screening Interpretation: Negative Depression Screening Done: Yes 60965 - PHQ-9 Billing: Yes Source: Developed by Drs. Mazin L. Kei, Tanner Arreguin and colleagues, with an educational tracie from [employer]. Thrive Questionnaire Date Thrive assessed: 12/31/24 I am a: Patient What is your living situation today?: I have a steady place to live Within the past 12 months, did the food you bought not last and you didn't have the money to get more?: Never true Within the past 12 months, did you worry whether your food would run out before you got money to buy more?: Never true Do you have trouble paying for medicines?: No Do you have trouble getting transportation to medical appointments?: No Do you have trouble paying your heating and electricity bill?: No Do you have trouble taking care of your child, family member or friend?: No Do you have trouble with day-to-day activities such as bathing, preparing meals, shopping, managing finances, etc.?: No Are you currently unemployed and looking for a job?: No Are you interested in more education?: No Please select the resources that you would like help with: None Currently or been in a relationship where the following occur: No concerns reported THRIVE Score: 0 AUDIT C Alcohol Use Questionnaire (AUDIT-C) 1. How often do you have a drink containing alcohol?: Monthly or less 2. How many drinks containing alcohol do you have on a typical day when you are drinking?: 1 or 2 3. How often do you have six or more drinks on one occasion?: Never Total Score: 1 HENRIQUE-7 AMB Questionnaire HENRIQUE-7 Date HENRIQUE - 7 assessed: 12/31/24 Feeling nervous, anxious, or on edge: 1 = Several days Not being able to stop or control worryin = Several days Worrying too much about different things: 1 = Several days Trouble relaxin = Several days Being so restless that it is hard to sit still: 0 = Not at all Becoming easily annoyed or irritable: 0 = Not at all Feeling afraid as if something awful might happen: 0 = Not at all Total HENRIQUE-7 score (0-4 normal; 5-9 mild; 10-14 moderate; 15-21 severe): 4 Source: Developed by Marina Arredondo Kurt Kroenke and colleagues, with an educational tracie from [employer]. HENRIQUE-7 Assessment Billing HENRIQUE-7 Assessment Tool: HENRIQUE-7 Assessment 57138 Review of Systems Const Denies body aches, Denies fatigue, Denies fever(s), Denies frequent falls, Denies headache(s) and Denies weakness Eyes Details: Had cataract surgery with Dr. Davis at [facility] ENT Denies dizziness, Denies headache(s), Denies nasal congestion, Denies nasal discharge and Denies sore throat Card Denies chest pain, Denies lightheadedness, Denies palpitations and Denies dyspnea Resp Denies chest congestion, Denies cough, Denies dyspnea and Denies wheezing GI Reports bloating, Reports change in bowel habits and Denies heartburn Denies urinary frequency, Denies dysuria and Denies urinary urgency Musc Denies back pain, Denies joint swelling, Denies muscle weakness and Reports stiffness Skin/Breast Reports as per HPI, Denies breast pain and Denies breast mass Neuro Denies dizziness, Denies frequent falls, Denies headache(s) and Denies weakness Psych Denies anxiety and Denies depression Endo Denies fatigue, Denies polydipsia, Denies polyuria and Denies palpitations Rocael/Lymph Denies easy bruising Aller/Immun Denies seasonal rhinorrhea and Denies wheezing Physical exam (Primary Care) Vital Signs: Last Vital Signs Temp 97.9 F 12/31/24 08:41 Pulse 78 12/31/24 08:41 Resp 16 12/31/24 08:41 BP 138/86 12/31/24 08:41 Pulse Ox 98 12/31/24 08:41 Oxygen Delivery Method Room Air 12/31/24 08:41 BMI result Body Mass Index 49.6 BMI Assessment/Plan discussion: High BMI High, discussed plan: lifestyle, weight reduction, dietary and physical activity Tobacco/Smoking Status: Tobacco use Status Tobacco use date assessed 12/31/24 12/31/24 08:46 Patient Tobacco Use Status Never used Tobacco 12/31/24 08:33 e-Cigarette/Vaping Use Never Used 12/31/24 08:33 PHQ-9: PHQ-9 Score PHQ-9: Total score 0 01/07/25 01:48 Depression Screening Interpretation: Negative Thrive Assessment: Date of Thrive Assessment Date Thrive assessed 12/31/24 12/31/24 08:46 Currently or been in a relationship where the following occur: No concerns reported Const General: comfortable and no acute distress Nutritional Appearance: obese morbidly obese Orientation/consciousness: patient oriented x3 Limitations: ambulation with cane HENMT Head: Yes normocephalic Ears: TM's normal bilaterally and EAC's normal General nose exam: Normal external nose present Face and sinus: Yes face symmetric Mouth: Normal oral and palatal mucosa present and moist mucous membranes Eyes General: appearance normal, both eyes and all related structures Neck Neck: Yes full ROM, Yes no lymphadenopathy and Yes supple Thyroid: Thyroid normal (Nonpalpable) Chest Chest palpation & inspection: normal inspection of the chest Breast/axilla inspection: normal inspection of the breasts Breast/axilla palpation: normal palpation of the breasts Resp Effort & Inspection: normal respiratory effort and able to speak in complete sentences Auscultation: clear to auscultation bilaterally Cardio Rate: regular rate Rhythm: regular rhythm Heart sounds: S1 normal heart sound present and S2 normal heart sound present GI Inspection: Yes obesity Palpation (GI): Soft to palpation, nontender, no guarding and no masses Auscultation: normal bowel sounds General: Yes no CVA tenderness and Yes deferred Back/Spine/Pelvis Back: no CVA tenderness and No back tenderness Skin Other: Hyperpigmentation noted under toenail of left big toe, nontender to palpation Neuro General: patient oriented x3 Extrem Other: Decreased range of motion of right hip joint General: Yes no joint enlargement, Yes no pedal edema and Yes no calf tenderness Psych Appearance: grossly normal Mental Status: mental status grossly normal Speech and movement: Normal speech and movement present Affect: normal affect Attitude: cooperative Thought process: Normal thought process present Thought content: Normal thought content present Results Reviewed Results Reviewed: celsa: Catalina Daniels Age/Sex: 69/F : 1955 Unit#: [id number] Attend Dr: Vidhi Urrutia MD Re12/29/24 Status: DEP [facility]F [facility] Disch: SPEC : [id number] LOPEZ: 12/29/24 STATUS: COMP REQ : [id number] RECD: 12/29/[address]: Vidhi Urrutia MD COMP: 12/29/24 ENTERED: 12/29/24 [facility] DR: ORDERED: CBC Auto Diff Test Result Flag Reference WBC 5.3 4.8-10.8 X10*3/uL RBC 4.86 4.20-5.50 X10 *6/uL HGB 14.6 12.0-16.0 g/dl HCT 44.9 37.0-47.0 % MCV 92.4 80.0-98.0 fL MCH 30.0 27.0-33.0 pg MCHC 32.5 31.0-35.0 g/dl RDW 13.7 11.0-16.0 % PLT 245 160-400 X10*3/uL MPV 10.2 9.4-12.3 fL Neut Pct Auto 60.2 45-73 % ImGran Pct Auto 0.4 0.0-0.4 % Lymp Pct Auto 24.5 20-40 % Trigg Pct Auto 9.1 2-11 % Eos Pct Auto 4.7 H 0-4 % Baso Pct Auto 1.1 0-2 % NRBC Pct Auto 0.0 0.0-0.2 /100WBC ANC Neut Abs # 3.2 2.0-8.3 x10*3/uL ImGran Abs Auto 0.02 0.00-0.03 X10*3/uL Lymph Abs Auto 1.3 1.2-4.9 X10*3/uL Trigg Abs Auto 0.5 0.1-1.2 X10*3/uL Eos Abs Auto 0.3 0.0-0.4 X10*3/uL Baso Abs Auto 0.1 0.0-0.2 X10*3/uL NRBC Abs Auto 0.000 0.0-0.012 X10*3/uL Name: Catalina Daniels Age/Sex: 69/F : 1955 Unit#: [id number] Attend Dr: Vidhi Urrutia MD Re12/29/24 Status: DEP REF Location: [facility] Disch: SPEC : [id number] LOPEZ: 12/29/24 STATUS: COMP REQ : [id number] RECD: 12/29/24-[address]: Vidhi Urrutia MD COMP: 12/29/24-1111 ENTERED: 12/29/240819 [facility] DR: ORDERED: Met Prof Fast, AST, ALT, Lipid Panel, Vitamin D 25-OH Test Result Flag Reference Sodium 142 135-145 mmol/L Potassium 3.9 3.3-5.1 mmol/L CL 107 96-108 mmol/L CO2 24 22-29 mmol/L Gap 15 12-20 BUN 21 H 9-16 mg/dL Creat 0.71 0.5-1.4 mg/dL eGFR > 60 Chronic Kidney Disease: Estimated GFR < 60 mL/min/1.73m2 Severe Kidney Disease: Estimated GFR < 15 mL/min/1.73m2 FBS 96 60-99 mg/dL CA 9.5 8.4-10.2 mg/dL AST (GOT) 20 5-31 U/L ALT (GPT) 11 0-31 U/L Triglyceride 79 <150 mg/dL Desirable Triglyceride: less than 150 mg/dL Borderline High Triglyceride 150-199 mg/dL High Triglyceride: 200-499 mg/dL Very High Triglyceride: greater than or equal to 5OO mg/dL Cholesterol 149 <200 mg/dL Desirable Cholesterol: less than 200 mg/dL Borderline High Cholesterol: 200-239 mg/dL High Cholesterol: greater than 239 mg/dL LDL Calculated 85 <100 mg/dL Desirable LDL: less than 100 mg/dL Near Optimal/Above Optimal LDL: 110-129 mg/dL Borderline High LDL: 130-159 mg/dL High LDL: 160-189 mg/dL Very High LDL: greater than or equal to 190 mg/dL HDL 49 >40 mg/dL Desirable HDL: greater than 40 mg/dL Note: This HDL assay may give artificially low results in patients with liver disease. Vitamin D 25-OH 43.2 >30 ng/mL Health Based Reference Values* < 20 ng/mL Deficient 20-30 ng/mL Insufficient > 30 ng/mL Sufficient Coding Level of Care Code Est Pt Prev Care >65y(58129) Diagnoses Annual visit for general adult medical examination with abnormal findings Z00.01 Screening for osteoporosis Z13.820 Dysplastic toenail Q84.6 Osteoarthritis of right hip M16.11 Morbid obesity E66.01 Additional Codes PHQ-9 - 99831 - PHQ-9 Billing: Yes ([id number]) HENRIQUE-7 Assessment Billing - HENRIQUE-7 Assessment Tool: HENRIQUE-7 Assessment 57209 ([id number]) Assessment & Plan Assessment & Plan (1) Annual visit for general adult medical examination with abnormal findings: Code(s): Z00.01 - Encounter for general adult medical examination with abnormal findings Category: Medical Plan: Up-to-date with screening mammogram and colon cancer screening, no longer gets cervical cancer screenings, last 1 done in 2020 showed atrophic vaginal mucosa negative findings. Ordered a repeat bone density scan, last 1 done in 2020 showed normal bone density results. Up-to-date with her vaccines, reminded to get her 2nd shingles vaccine. 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 Notify the office if no appointment from podiatry is received after ten days (4) Osteoarthritis of right hip: Code(s): M16.11 - Unilateral primary osteoarthritis, right hip Category: Medical Plan: Followed by Orthopedics (5) Morbid obesity: Code(s): E66.01 - Morbid (severe) obesity due to excess calories Category: Medical Plan: I started the patient on phentermine 10 mg for weight management, with plans to monitor and reassess in one month, considering a dose increase if required. The patient should report any side effects. Dietary adjustments and exercise were discussed considering her osteoarthritis limitations. Return for a follow-up visit in February to assess the effectiveness of phentermine and adjust the plan as needed. Plan Patient was informed and verbally consented to the use of an ambient scribe for clinic note documentation during this visit. 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
[2024-12-31 08:41] VITALS: BP 138/86; PULSE 78; RESP 16; TEMP 36.6; O2SAT 98; BMI 49.6
== END 2024-12-31 10:09 | disposition home or self-care (01) ==
LOC: HO.HMCC 08:24
PROVIDERS: PCP Internal Medicine; Visit Provider Internal Medicine
DX: Z00.00 Encounter for general adult medical examination without abnormal findings (principal); M16.11 Unilateral primary osteoarthritis, right hip; E66.01 Morbid (severe) obesity due to excess calories; Z68.42 Body mass index [BMI] 45.0-49.9, adult; Z13.820 Encounter for screening for osteoporosis; Q84.6 Other congenital malformations of nails

== ENCOUNTER → 2024-12-31 08:23 | Outpatient (BNVA) | payer MEDICARE, SELFPAY | PROVIDERS: PCP Internal Medicine; Visit Provider Internal Medicine | DX: Z00.01 Encounter for general adult medical examination with abnormal findings (principal); M16.10 Unilateral primary osteoarthritis, unspecified hip; Q84.6 Other congenital malformations of nails; M16.11 Unilateral primary osteoarthritis, right hip; E66.01 Morbid (severe) obesity due to excess calories; Z78.0 Asymptomatic menopausal state; Z68.42 Body mass index [BMI] 45.0-49.9, adult | CPT/HCPCS: 96127; 99397 ==

== ENCOUNTER → 2025-02-05 08:57 | Outpatient (BNVA) | payer MEDICARE, SELFPAY | PROVIDERS: PCP Internal Medicine; Visit Provider Internal Medicine ==

== ENCOUNTER 2025-03-17 09:56 | Outpatient (AMB) | payer MEDICARE, SELFPAY ==
[2025-03-17 10:00] VITALS: BP 136/84; PULSE 90; O2SAT 95; BMI 48.2
--- NOTE | 2025-03-17 10:00 | A.OFFPC_ITS ---
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 Accompanied by: Self / Same As Patient Allergies No Known Allergies Allergy (Verified 03/17/25 10:24) Medication List - Last Reconciled 03/17/25 by Vidhi Urrutia MD acetaminophen ER (Tylenol 8 Hour) 650 mg PO Q12H naproxen 500 mg PO BID phentermine 15 mg PO DAILY Tobacco use date assessed: 12/31/24 Fall risk assessment: No Falls in past year Last assessed Fall Risk: 03/17/25 Dental Screening Dental Screen Date: 12/31/24 HPI 1m f/u HPI Details 69-year-old lady with history of morbid obesity, osteoarthritis in multiple joints, and history of ductal carcinoma inside of left breast, here today for follow-up on her weight. She was started on phentermine 15 mg per capsule taken 2 hours after eating approximately 2 months ago. Has been compliant with healthy eating habits and tries to do as much exercise as she can on a regular basis. 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 At [facility], patient states that she is required to lose at least 60 lb before they will do any operation. She has been tolerating phentermine, with no side effects reported however she does not notice any significant change in appetite. 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, bilateral Surgical History History of partial mastectomy History of knee replacement Family History Mother Breast cancer Father Coronary artery disease Hypertension Sister Muscular dystrophy Breast cancer Ovarian cancer Thyroid cancer Social History Housing: House Alcohol intake: current Alcohol intake frequency: holidays/special occasions only Patient Tobacco Use Status: Never used Tobacco e-Cigarette/Vaping Use: Never Used service: No Current occupational status: retired Cognitive needs: No Hearing needs: No Vision needs: No Questionnaire Thrive Questionnaire Date Thrive assessed: 03/17/25 I am a: Patient What is your living situation today?: I have a steady place to live Within the past 12 months, did the food you bought not last and you didn't have the money to get more?: Never true Within the past 12 months, did you worry whether your food would run out before you got money to buy more?: Never true Do you have trouble paying for medicines?: No Do you have trouble getting transportation to medical appointments?: No Do you have trouble paying your heating and electricity bill?: No Do you have trouble taking care of your child, family member or friend?: No Do you have trouble with day-to-day activities such as bathing, preparing meals, shopping, managing finances, etc.?: No Are you currently unemployed and looking for a job?: No Are you interested in more education?: No Please select the resources that you would like help with: None Currently or been in a relationship where the following occur: No concerns reported THRIVE Score: 0 AUDIT C Alcohol Use Questionnaire (AUDIT-C) 1. How often do you have a drink containing alcohol?: Monthly or less 2. How many drinks containing alcohol do you have on a typical day when you are drinking?: 1 or 2 3. How often do you have six or more drinks on one occasion?: Never Total Score: 1 Score Reviewed/Action Taken: Yes HENRIQUE-7 AMB Questionnaire HENRIQUE-7 Date HENRIQUE - 7 assessed: 12/31/24 Source: Developed by Drs. Mazin Choudhury, Marina Ríos, Tanner Grimm and colleagues, with an educational tracie from [employer]. Review of Systems Const Reports body aches, Denies fatigue, Denies fever(s), Denies frequent falls, Denies headache(s) and Denies weakness Eyes Details: [facility] ENT Denies dizziness, Denies headache(s), Denies nasal congestion, Denies nasal discharge and Denies sore throat Card Denies chest pain, Denies lightheadedness, Denies palpitations and Denies dyspnea Resp Denies chest congestion, Denies cough, Denies dyspnea and Denies wheezing GI Denies change in bowel habits and Denies heartburn Denies urinary frequency, Denies dysuria and Denies urinary urgency Musc Denies back pain, Denies joint swelling, Denies muscle weakness and Reports stiffness Skin/Breast Reports as per HPI, Denies breast pain and Denies breast mass Neuro Denies dizziness, Denies frequent falls, Denies headache(s) and Denies weakness Psych Denies anxiety and Denies depression Endo Denies fatigue, Denies polydipsia, Denies polyuria and Denies palpitations Rocael/Lymph Denies easy bruising Aller/Immun Denies seasonal rhinorrhea and Denies wheezing Physical exam (Primary Care) Vital Signs: Last Vital Signs Pulse 90 03/17/25 10:00 BP 136/84 03/17/25 10:00 Pulse Ox 95 03/17/25 10:00 Oxygen Delivery Method Room Air 03/17/25 10:00 BMI result Body Mass Index 48.2 Tobacco/Smoking Status: Tobacco use Status Tobacco use date assessed 12/31/24 03/17/25 10:05 Patient Tobacco Use Status Never used Tobacco 03/17/25 10:05 e-Cigarette/Vaping Use Never Used 03/17/25 10:05 Thrive Assessment: Date of Thrive Assessment Date Thrive assessed 03/17/25 03/17/25 10:05 Currently or been in a relationship where the following occur: No concerns reported Const General: no acute distress Nutritional Appearance: obese morbidly obese Orientation/consciousness: patient oriented x3 Limitations: ambulation with cane HENMT Head: Yes normocephalic General nose exam: Normal external nose present Face and sinus: Yes face symmetric Mouth: Normal oral and palatal mucosa present and moist mucous membranes Eyes General: appearance normal, both eyes and all related structures Neck Neck: Yes full ROM, Yes no lymphadenopathy and Yes supple Thyroid: Thyroid normal (Nonpalpable) Resp Effort & Inspection: normal respiratory effort and able to speak in complete sentences Auscultation: clear to auscultation bilaterally Cardio Rate: regular rate Rhythm: regular rhythm Heart sounds: S1 normal heart sound present and S2 normal heart sound present GI Inspection: Yes obesity Palpation (GI): Soft to palpation, nontender, no guarding and no masses Auscultation: normal bowel sounds General: Yes no CVA tenderness and Yes deferred Back/Spine/Pelvis Back: no CVA tenderness and No back tenderness Skin Other: Hyperpigmentation noted under toenail of left big toe, nontender to palpation Neuro General: patient oriented x3 Extrem Other: Decreased range of motion of right hip joint General: Yes no joint enlargement, Yes no pedal edema and Yes no calf tenderness Psych Appearance: grossly normal Mental Status: mental status grossly normal Speech and movement: Normal speech and movement present Affect: normal affect Attitude: cooperative Thought process: Normal thought process present Thought content: Normal thought content present Coding Level of Care Code Est Pt Level 4 (14398) Diagnoses Morbid obesity E66.01 Assessment & Plan Assessment & Plan (1) Morbid obesity: Code(s): E66.01 - Morbid (severe) obesity due to excess calories Category: Medical Plan: Phentermine 15 mg capsules and prescription sent for phentermine 30 mg capsule to take 1 at least 2 hours after eating breakfast. Combined this with adherence to healthy eating habits and regular exercise will see her back for follow-up in 2 months Medications: New phentermine must administer 2 hours after breakfast 30 mg PO DAILY 30 caps 1RF E66.01 - Morbid (severe) obesity due to excess calories Discontinued phentermine must administer 2 hours after breakfast Discontinued Reason: Doctor's Order 15 mg PO DAILY 30 caps 1RF
--- OUTSIDE RECORDS SUMMARY | 2025-03-17 10:41 | XMS_ITS | Patient Health Record ---
Author Organization [facility] Address [address] [place] [address] Care Team Providers Care Design Technician Name Role Phone Ira Jain Primary Care Provider Unavail able Danisha Francisco Unavailable [phone] Reason For Referral No Information Medications Medication SIG (Take, Route, Fr equency, Duration) Notes Start Date End Date Status Advil 200 MG 1 tablet as needed O rally every 6 hrs 02/18/2013 Not-Taking Social History Tobacco Use: Social History Observation Description Date Details (start date - stop date) Never Smoker NA - NA Tobacco Use/Smoking Question Answer Notes Are you a: nonsmoker Additional Findings: Tobacco Non-User Aggressive non-smoker Alcohol Screen Question Answer Notes Did you have a drink containing alcohol in the p ast year? Yes Points 0 Interpretation Negative Tobacco use other than smoking: Question Answer Notes Are you an other tobacco user? No Problems No Known Problems Plan Of Treatment Pending Test Test Name Order Date X ray : Ankle, left 2V 02/18/2013 X ray : Ankle, left 3V 05/05/2019 X ray : Foot, left 2V 05/05/2019 X ray : Foot, left 3V 02/18/2013 Insurance Providers Payer Name Payer Address Payer Phone Subscriber Number Group Number Insured Name Patient Relationship to Insured Coverage Start Date Coverage End Date UMR [address] [address] [place] [address] [id number] Catalina Daniels Self - patient is the insured Medical (General) History Medical History History ICD Code osteoarthritis dementia headaches/migraines neuropathy scarlet fever measles mumps bone implants/screws transfusions bulging discs whooping cough Arthritis Back,Hip,and Knee pain Cancer Cataracts Depression Headaches/Migraines Scarlet fever Chicken pox Joint implants/screws Surgical History Surgery Date(Month/Year) right knee arthroscopy bilateral knee replacements 08/2007 Lumpectomy breast 2013
--- OUTSIDE RECORDS SUMMARY | 2025-03-17 10:41 | XMS_ITS | Clinical Summary ---
Author Organization [address] [facility] Address [address] [place] [address] Phone Care Team Providers Care Photographic Equipment Inspector Name Role Phone Vidhi Urrutia MD Primary Care Provider Social History Tobacco Use Types Packs/Day Years Used Date Smoking Tobacco: Never Assessed Comments Unknown Sex and Gender Information Value Date Recorded Sex Assigned at Not on file Legal Sex Female 8:12 AM EST Gender Identity Not on file Sexual Orientation Not on file Plan of Treatment Upcoming Encounters Date Type Department Care Team ([facility] Contact Info) Description 04/13/2025 9:15 AM EDT Office Visit Orthopedic Surgery - [place] [address] [phone] Ruddy Cortez, DPM [address] [address] Health Maintenance Due Date Last Done Comments Breast Cancer Screening 1955 DTaP,Tdap,and Td Vaccines (1 - Tdap) 11/05/1974 Pneumococcal Vaccine: 50+ Ye ars (1 of 1 - PCV) 11/05/2005 Zoster Vaccines (1 of 2) 11/05/2005 COVID-19 Vaccine ( - 2023-2 5 season) 2024 Depression Screening 08/19/2024 Colorectal Cancer Screening: Colonoscopy 01/13/2025 Falls Risk Assessment 01/13/2025 Hepatitis C Screening 01/13/2025 Medicare Annual Wellness Visit 01/13/2025 Osteoporosis Screening (Bone Density Screening) 01/13/2025 Social Influencers of Health Screening 01/13/2025 Influenza Vaccine (#1) 2025 RSV Immunization Adult Patie nts (1 - 1-dose 75+ series) 11/05/2030 HIB Vaccines Aged Out No longer eligi ble based on patient's age to complete this topic HPV Vaccines Aged Out No longer eligi ble based on patient's age to complete this topic Hepatitis A Vaccines Aged Out No long er eligible based on patient's age to complete this topic Hepatitis B Vaccines Aged Out No long er eligible based on patient's age to complete this topic IPV Vaccines Aged Out No longer eligi ble based on patient's age to complete this topic MMR Vaccines Aged Out No longer eligi ble based on patient's age to complete this topic Meningococcal ACWY Vaccine Aged Out N o longer eligible based on patient's age to complete this topic Meningococcal B Vaccine Aged Out No l onger eligible based on patient's age to complete this topic RSV Immunization Patients Un josé 20 months Aged Out No longer eligible b ased on patient's age to complete this topic Varicella Vaccines Aged Out No longer eligible based on patient's age to complete this topic Insurance BLUE CROSS - [place] MEDIC[place] ADVANTAGE Care Teams Photographic Equipment Inspector Relationship Specialty Start Date End Date Vidhi Urrutia MD [address] [place] [address] PCP - General Internal Medicine 01/13/25
== END 2025-03-17 10:39 | disposition home or self-care (01) ==
LOC: HO.HMCC 09:57
PROVIDERS: PCP Internal Medicine; Visit Provider Internal Medicine
DX: E66.01 Morbid (severe) obesity due to excess calories (principal); Z68.42 Body mass index [BMI] 45.0-49.9, adult

== ENCOUNTER → 2025-03-17 09:56 | Outpatient (BNVA) | payer MEDICARE, SELFPAY | PROVIDERS: PCP Internal Medicine; Visit Provider Internal Medicine | DX: E66.01 Morbid (severe) obesity due to excess calories (principal); M15.9 Polyosteoarthritis, unspecified; Z85.3 Personal history of malignant neoplasm of breast; Z68.42 Body mass index [BMI] 45.0-49.9, adult; Z79.899 Other long term (current) drug therapy | CPT/HCPCS: 99212 ==

== ENCOUNTER 2025-05-20 13:38 | Outpatient (AMB) | payer MEDICARE, SELFPAY ==
--- NOTE | 2025-05-20 14:06 | MHC.PC.OV ---
Vital Signs 05/20/25 14:08 Height 5 ft 4 in Weight 275 lb BMI 47.2 BP 128/74 Blood Pressure Location Rt brachial Position Sitting Pulse 95 Pulse Source Pulse Oximeter Temp 97.8 F Temp Source Oral Pulse Oximetry (%) 97 Oxygen Delivery Method Room Air Intake Visit Reasons: 2 months ffup weight Intake Note: Pt is here today for her 2mo. f/u weigh in Construction Sales Manager Required: No Allergies No Known Allergies Allergy (Verified 05/29/25 01:27) Medication List - Last Reconciled 05/29/25 by Vidhi Urrutia MD acetaminophen ER (Tylenol 8 Hour) 650 mg PO Q12H cephalexin 500 mg PO Q8H 10 days naproxen 500 mg PO BID phentermine 30 mg PO DAILY Tobacco use date assessed: 12/31/24 Fall risk assessment: No Falls in past year Last assessed Fall Risk: 05/20/25 Dental Screening Dental Screen Date: 05/20/25 Did you have a dental visit in the last 12 months?: Yes Did you have a dental problem in the last 6 months where you did not have access to dental care?: No Was dental information given to patient?: Patient has dentist HPI 2 months ffup weight HPI Details The patient is a 69-year-old female presenting today for follow-up on her weight, currently on 30 mg of phentermine. She reports a weight loss of 6 pounds, currently weighing 275 pounds, and is on a 30 mg dose of phentermine, which she takes every other day due to anxiety concerns. The patient is considering reducing the frequency of phentermine intake further. The patient also reports experiencing anxiety, which she attributes to both personal life stressors and possibly the phentermine medication. She has a sister with health issues and finds the current news distressing, contributing to her anxiety. The patient has a history of a lipoma on her back, which recently burst. She is concerned that it might still be infected and would like a referral for surgical consult [facility] Medical History (Updated 05/29/25 @ 01:30 by Vidhi Urrutia MD) IBS (irritable bowel syndrome) History of ductal carcinoma in situ (DCIS) of breast Osteoarthritis of right hip Morbid obesity Osteoarthritis of knees, bilateral Surgical History History of partial mastectomy History of knee replacement Family History Mother Breast cancer Father Coronary artery disease Hypertension Sister Muscular dystrophy Breast cancer Ovarian cancer Thyroid cancer Social History Housing: House Alcohol intake: current Alcohol intake frequency: holidays/special occasions only Patient Tobacco Use Status: Never used Tobacco e-Cigarette/Vaping Use: Never Used service: No Current occupational status: retired Cognitive needs: No Hearing needs: No Vision needs: No Questionnaire PHQ-9 Over the last 2 weeks, how often have you been bothered by any of the following problems? 1. Little interest or pleasure in doing things: not at all 2. Feeling down, depressed, or hopeless: not at all 3. Trouble falling or staying asleep, or sleeping too much: not at all 4. Feeling tired or having little energy: not at all 5. Poor appetite or overeating: not at all 6. Feeling bad about yourself - or that you are a failure or have let yourself or your family down: not at all 7. Trouble concentrating on things, such as reading the newspaper or watching television: not at all 8. Moving or speaking so slowly that other people could have noticed. Or the opposite - being so fidgety or restless that you have been moving around a lot more than usual: not at all 9. Thoughts that you would be better off or of hurting yourself in some way: not at all Total score: 0 Depression Screening Interpretation: Negative Depression Screening Done: Yes Source: Developed by Drs. Mazin Choudhury, Marina Ríos, Tanner Grimm and colleagues, with an educational tracie from [employer]. Thrive Questionnaire Date Thrive assessed: 12/24/24 I am a: Patient What is your living situation today?: I have a steady place to live Within the past 12 months, did the food you bought not last and you didn't have the money to get more?: Never true Within the past 12 months, did you worry whether your food would run out before you got money to buy more?: Never true Do you have trouble paying for medicines?: No Do you have trouble getting transportation to medical appointments?: No Do you have trouble paying your heating and electricity bill?: No Do you have trouble taking care of your child, family member or friend?: No Do you have trouble with day-to-day activities such as bathing, preparing meals, shopping, managing finances, etc.?: No Are you currently unemployed and looking for a job?: No Are you interested in more education?: No Please select the resources that you would like help with: None Currently or been in a relationship where the following occur: No concerns reported THRIVE Score: 0 AUDIT C Alcohol Use Questionnaire (AUDIT-C) 1. How often do you have a drink containing alcohol?: Monthly or less 2. How many drinks containing alcohol do you have on a typical day when you are drinking?: 1 or 2 3. How often do you have six or more drinks on one occasion?: Never Total Score: 1 HENRIQUE-7 AMB Questionnaire HENRIQUE-7 Date HENRIQUE - 7 assessed: 12/31/24 Source: Developed by Drs. Mazin Choudhury, Marina Ríos, Tanner Grimm and colleagues, with an educational tracie from [employer]. Review of Systems Const Denies body aches, Denies fatigue, Denies fever(s) and Denies lethargy ENT Reports no additional complaints Card Reports no additional complaints Resp Reports no additional complaints GI Reports no additional complaints Musc Reports no additional complaints Skin/Breast Reports as per HPI Neuro Reports no additional complaints Endo Denies fatigue Physical exam (Primary Care) Vital Signs: Last Vital Signs Temp 97.8 F 05/20/25 14:08 Pulse 95 05/20/25 14:08 BP 128/74 05/20/25 14:08 Pulse Ox 97 05/20/25 14:08 Oxygen Delivery Method Room Air 05/20/25 14:08 BMI result Body Mass Index 47.2 Tobacco/Smoking Status: Tobacco use Status Tobacco use date assessed 12/31/24 05/20/25 14:07 Patient Tobacco Use Status Never used Tobacco 05/20/25 14:07 e-Cigarette/Vaping Use Never Used 05/20/25 14:07 PHQ-9: PHQ-9 Score PHQ-9: Total score 0 05/20/25 15:41 Depression Screening Interpretation: Negative Thrive Assessment: Date of Thrive Assessment Date Thrive assessed 12/24/24 05/20/25 14:07 Currently or been in a relationship where the following occur: No concerns reported Const General: no acute distress Nutritional Appearance: obese morbidly obese Orientation/consciousness: patient oriented x3 Limitations: ambulation with cane HENMT Head: Yes normocephalic General nose exam: Normal external nose present Face and sinus: Yes face symmetric Mouth: Normal oral and palatal mucosa present and moist mucous membranes Eyes General: appearance normal, both eyes and all related structures Neck Neck: Yes full ROM, Yes no lymphadenopathy and Yes supple Thyroid: Thyroid normal (Nonpalpable) Resp Effort & Inspection: normal respiratory effort and able to speak in complete sentences Auscultation: clear to auscultation bilaterally Cardio Rate: regular rate Rhythm: regular rhythm Heart sounds: S1 normal heart sound present and S2 normal heart sound present GI Inspection: Yes obesity Palpation (GI): Soft to palpation, nontender, no guarding and no masses Auscultation: normal bowel sounds General: Yes no CVA tenderness and Yes deferred Back/Spine/Pelvis Back: no CVA tenderness and No back tenderness Skin Other: Raised nodular lesion slightly fluctuant, and tender to palpation on upper back, with no active drainage Neuro General: patient oriented x3 Extrem Other: Decreased range of motion of right hip joint General: Yes no joint enlargement, Yes no pedal edema and Yes no calf tenderness Psych Appearance: grossly normal Mental Status: mental status grossly normal Speech and movement: Normal speech and movement present Affect: normal affect Coding Level of Care Code Est Pt Level 4 (15816) Diagnoses Lipoma of back D17.1 Morbid obesity E66.01 Assessment & Plan Assessment & Plan (1) Lipoma of back: Code(s): D17.1 - Benign lipomatous neoplasm of skin and subcutaneous tissue of trunk Plan: Prescription sent for cephalexin 500 mg to take 1 every 8 hours for 10 days. General surgery consult ordered (2) Morbid obesity: Code(s): E66.01 - Morbid (severe) obesity due to excess calories Category: Medical Plan: Continue with phentermine 30 mg once a day 2 hours after breakfast, in addition to adherence to healthy eating habits and regular exercise. Patient tolerating medication well. Will see her back for follow-up in 2 months Orders: Referrals General Surgery Referral D17.1 - Benign lipomatous neoplasm of skin and subcutaneous tissue of trunk Medications: New cephalexin 500 mg PO Q8H 30 caps 0RF 10 days Refilled phentermine must administer 2 hours after breakfast 30 mg PO DAILY 30 caps 1RF E66.01 - Morbid (severe) obesity due to excess calories
[2025-05-20 14:08] VITALS: BP 128/74; PULSE 95; TEMP 36.6; O2SAT 97; BMI 47.2
--- OUTSIDE RECORDS SUMMARY | 2025-05-20 15:08 | XMS_ITS | Patient Health Record ---
Author Organization [facility] Address [address] [place] [address] Care Team Providers Care Financial Analyst Accountant Name Role Phone Ira Jain Primary Care Provider Unavail able Danisha Francisco Unavailable [phone] Reason For Referral No Information Medications Medication [...] Date Coverage End Date UMR [address] [address] [place] [address] [id number] Catalina Daniels Self - patient is the [...]
--- OUTSIDE RECORDS SUMMARY | 2025-05-20 15:08 | XMS_ITS | Clinical Summary ---
Author Organization 175 [facility] Address [address] [place] [address] Phone Care Team Providers Care Sales Operations Analyst Name Role Phone Vidhi Urrutia MD Primary Care Provider Allergies No known active allergies Medications acetaminophen (TYLENOL) 325 mg tablet Take by mouth every 6 (six) hours if needed for mild pain. Active clotrimazole (LOTRIMIN) 1 % cream Apply topically 2 (two) times a day. 30 g 3 05/13/20 25 Encounters Date Type Department Care Team Description 04/13/2025 9:15 AM EDT Office Visit Orthopedic Surgery [facility] [address] [phone] Ruddy Cortez, DPM Posterior tibial tendon dysfunction (PTTD) of left lower extremity (Primary Dx); Arthritis of left ankle; Dermatophytosis of nail; Pain in toe of left foot; Difficulty walking from Last 3 Months Medical History Medical History Date Comments Osteoarthritis of hip IBS (irritable bowel syndrome) Bilateral primary osteoarthritis of knee Social History Tobacco Use Types Packs/Day Years Used Date Smoking Tobacco: Never Assessed Comments Unknown Sex and Gender Information Value Date Recorded Sex Assigned at Not on file Legal Sex Female 8:12 AM EST Gender Identity Not on file Sexual Orientation Not on file Obstetrics History Last Filed Vital Signs Vital Sign Reading Time Taken Comments Blood Pressure - - Pulse - - Temperature - - Respiratory Rate - - Oxygen Saturation - - Inhaled Oxygen Concentration - - Weight 132 kg (290 lb) 04/13/2025 9:46 AM EDT Height 162.6 cm (5' 4 ) 04/13/2025 9:46 AM EDT Body Mass Index 49.78 04/13/2025 9:46 AM EDT Plan of Treatment Upcoming Encounters Date Type Department Care Team (Late st Contact Info) Description 05/25/2025 9:45 AM EDT Office Visit Orthopedic Surgery - [place] 250 [address] [facility] [address] [place] [address] Ruddy Cortez, DPM [address] [facility] [address] [place] [phone] Health Maintenance Due Date Last Done Comments Breast Cancer Screening 1955 Colorectal Cancer Screening: Colonoscopy 1955 Zoster Vaccines (2 of 2) 07/07/2020 05/12/2020 Depression Screening 08/19/2024 Falls Risk Assessment 01/13/2025 Hepatitis C Screening 01/13/2025 Medicare Annual Wellness Visit 01/13/2025 Osteoporosis Screening (Bone Density Screening) 01/13/2025 Social Influencers of Health Screening 01/13/2025 COVID-19 Vaccine ( season) 2025 06/08/2024, 05/23/2023, 04/27/2022, Additional history exists Influenza Vaccine (#1) 2025 , 05/23/2023, 04/27/2022, Additional history exists DTaP,Tdap,and Td Vaccines (2 - Td or Tdap) 01/24/2028 01/23/2018 RSV Immunization Adult Patients Completed 05/23/2023 Pneumococcal Vaccine: 50+ Years Completed 06/08/2024, 05/12/2020 HIB Vaccines Aged Out No longer eligi [...] to complete this topic RSV Immunization Patients Under 20 months Aged Out No longer eligible based on patient's age to complete this topic Varicella Vaccines Aged Out No longer eligible based on patient's age to complete this topic Insurance BLUE CROSS - [place]IC[place] AD[place]ANTAGE Care Teams Sales Operations Analyst Relationship Specialty Start Date End Date Vidhi Urrutia MD [address] [place] [address] PCP - General Internal Medicine 01/13/25
== END 2025-05-20 14:32 | disposition home or self-care (01) ==
LOC: HO.HMCC 13:39
PROVIDERS: PCP Internal Medicine; Visit Provider Internal Medicine
DX: D17.1 Benign lipomatous neoplasm of skin and subcutaneous tissue of trunk (principal); E66.01 Morbid (severe) obesity due to excess calories; Z68.42 Body mass index [BMI] 45.0-49.9, adult

== ENCOUNTER → 2025-05-20 13:38 | Outpatient (BNVA) | payer MEDICARE, SELFPAY | PROVIDERS: PCP Internal Medicine; Visit Provider Internal Medicine | DX: D17.1 Benign lipomatous neoplasm of skin and subcutaneous tissue of trunk (principal); E66.01 Morbid (severe) obesity due to excess calories; F41.9 Anxiety disorder, unspecified; Z68.42 Body mass index [BMI] 45.0-49.9, adult | CPT/HCPCS: 96127; 99212 ==

== ENCOUNTER 2025-06-28 13:58 | Outpatient (AMB) | payer MEDICARE, SELFPAY ==
--- NOTE | 2025-06-28 14:01 | A.OFFVIS_ITS ---
Vital Signs 3 06/28/25 14:08 Height 5 ft 4 in Weight 280 lb BMI 48.1 BP 173/80 H Blood Pressure Location Lt brachial Position Sitting Pulse 107 H Intake Visit Reasons: Lipoma Trunk Intake Note: Patient is seen in office for evaluation of a lipoma of the back. Pt c/o: onset 3 months, was infected and given antbiotics, did have discharge, foul odor, currently is healed Order Picker/Assembler Required: No Accompanied by: Self / Same As Patient Allergies No Known Allergies Allergy (Verified 06/28/25 14:08) Medication List - Last Reconciled 06/28/25 by James Claros MD acetaminophen ER (Tylenol 8 Hour) 650 mg PO Q12H naproxen 500 mg PO BID phentermine 30 mg PO DAILY HPI Comments Details: 69-year-old female patient presenting for evaluation of a lump in the right upper back. This recently became enlarged and painful after which she was placed on antibiotics. This has now decreased in size in his no longer causing pain. She does report some itchiness from the site. She denies any bleeding or discharge from the site. She denies fever, chills, nausea or vomiting. She denies any previous problems at this location. [facility] Medical History IBS (irritable bowel syndrome) History of ductal carcinoma in situ (DCIS) of breast Osteoarthritis of right hip Morbid obesity Osteoarthritis of knees, bilateral Surgical History History of partial mastectomy History of knee replacement Family History Mother Breast cancer Father Coronary artery disease Hypertension Sister Muscular dystrophy Breast cancer Ovarian cancer Thyroid cancer Social History Housing: House Alcohol intake: current Alcohol intake frequency: holidays/special occasions only Patient Tobacco Use Status: Never used Tobacco e-Cigarette/Vaping Use: Never Used service: No Current occupational status: retired Cognitive needs: No Hearing needs: No Vision needs: No Review of Systems Const All systems reviewed & are unremarkable except as noted in HPI and below Physical Exam Vital Signs: Last Vital Signs Pulse 107 H 06/28/25 14:08 BP 173/80 H 06/28/25 14:08 BMI result Body Mass Index 48.1 Const General: cooperative and no acute distress Nutritional Appearance: well nourished Orientation/consciousness: patient oriented x3 Limitations: no limitations HEENT Head: Yes normocephalic and Yes atraumatic Ears: hearing grossly normal bilaterally Resp Effort & Inspection: normal respiratory effort, no audible wheezes, no cough and no respiratory distress Cardio Jugular venous distension: no JVD GI Inspection: Yes normal to inspection Back/Spine/Pelvis Other: 4 cm area of induration with slight erythema overlying the right upper back, minimally tender to palpation. No fluctuance noted. No discharge noted. Findings suggestive of a epidermal inclusion cyst. Back/spine/pelvis image: 2 1. Site of epidermal inclusion cyst right upper back approximately 4 cm diameter Skin Other: Warm, dry, no rash Neuro General: patient oriented x3 Extrem General: Yes no clubbing, cyanosis or edema Assessment & Plan Assessment & Plan (1) Epidermal inclusion cyst: Code(s): L72.0 - Epidermal cyst Category: Medical Plan 69-year-old female patient presenting with a recently infected epidermal inclusion cyst of the right upper back. This has now resolved after a course of oral antibiotics. I offered possible excision of the cyst to prevent further infection versus observation. She wishes to hold off on any surgical procedure at this time. I recommended she call our office should the lesion increase in size or begin to cause increased discomfort. She expressed understanding and agrees with the plan. Coding Level of Care Code New Pt Level 4 (24394) Diagnoses Epidermal inclusion cyst L72.0
[2025-06-28 14:08] VITALS: BP 173/80; PULSE 107; BMI 48.1
--- OUTSIDE RECORDS SUMMARY | 2025-06-28 16:16 | XMS_ITS | Clinical Summary ---
Author Organization 175 [facility] Address [address] [place] [address] Phone Care Team Providers Care Per Diem Physical Therapist Name Role Phone Vidhi Urrutia MD Primary Care Provider [phone] Allergies No known active allergies Medications acetaminophen (TYLENOL) 325 mg tablet Take by mouth every 6 (six) hours if needed for mild pain. Active phentermine 30 mg capsule TAKE 1 CAPSULE DAILY MUST ADMINISTER 2 HOURS AFTER BREAKFAST Active Encounters Date Type Department Care Team Description 05/27/2025 Telephone Orthopedic [facility] [address] [phone] [place] 05/25/2025 9:45 AM EDT Office Visit [place] [address] [phone] Ruddy Cortez DPM Posterior tibial tendon dysfunction (PTTD) of left lower extremity (Primary Dx); Arthritis of left ankle; Dermatophytosis of nail; Difficulty walking 04/13/2025 9:15 AM EDT Office Visit [place] [address] [phone] Ruddy Cortez DPM Posterior tibial tendon dysfunction (PTTD) of [...] 04/13/2025 9:46 AM EDT Plan of Treatment Health Maintenance Due Date Last Done Comments Breast Cancer Screening 1955 Colorectal Cancer Screening: Colonoscopy 1955 Zoster Vaccines (2 of 2) 07/07/2020 05/12/2020 Depression Screening 08/19/2024 Falls Risk Assessment 01/13/2025 Hepatitis C Screening 01/13/2025 Medicare Annual Wellness Visit 01/13/2025 Osteoporosis Screening (Bone Density Screening) 01/13/2025 Social Influencers of Health Screening 01/13/2025 DTaP,Tdap,and Td Vaccines (2 - Td or Tdap) 01/24/2028 01/23/2018 RSV Immunization Adult Patients Completed 05/23/2023 Pneumococcal Vaccine: 50+ Years Completed 06/08/2024, 05/12/2020 COVID-19 Vaccine Completed 05/15/2025, , 05/23/2023, Additional history exists Influenza Vaccine Completed 05/15/2025, , 05/23/2023, Additional history exists HIB Vaccines Aged Out No longer eligi [...] [place] Care Teams Per Diem Physical Therapist Relationship Specialty Start Date End Date Vidhi Urrutia MD [address] [place] [address] PCP - General Internal Medicine 01/13/25
--- OUTSIDE RECORDS SUMMARY | 2025-06-28 16:16 | XMS_ITS | Encounter Summary ---
Author Organization [facility] Address [id number] [place] [id number] Care Team Providers Care Nightclub Manager Name Role Phone Vidhi Urrutia MD Primary Care Provider [phone] Encounter Details Date Type Department Care Team (Late st Contact Info) Description 05/27/2025 Telephone Orthopedic Surgery - [address] [facility] [address] [place] [address] [place], [place] Social History Tobacco Use Types Packs/Day Years Used Date Smoking Tobacco: Never Assessed Comments Unknown Sex and Gender Information Value Date Recorded Sex Assigned at Not on file Legal Sex Female 8:12 AM EST Gender Identity Not on file Sexual Orientation Not on file documented as of this encounter Plan of Treatment Not on file documented as of this encounter Visit Diagnoses Not on filedocumented in this encounter Care Teams Nightclub Manager Relationship Specialty Start Date End Date Vidhi Urrutia MD [address] [place] [address] PCP - General Internal Medicine 01/13/25 documented as of this encounter
== END 2025-06-28 14:21 | disposition home or self-care (01) ==
LOC: HO.HGS 13:58
PROVIDERS: PCP Internal Medicine; Visit Provider Surgery
DX: L72.0 Epidermal cyst (principal)
CPT/HCPCS: 99204

== ENCOUNTER → 2025-06-28 13:58 | Outpatient (BNVA) | payer MEDICARE, SELFPAY | PROVIDERS: PCP Internal Medicine; Visit Provider Surgery | DX: L72.0 Epidermal cyst (principal) | CPT/HCPCS: 99202 ==